=== PATIENT | male | born 1970 | race Caucasian/White ===

== ENCOUNTER 2016-10-06 02:38 | Emergency (ER) | payer MEDICAID, OTHER ==
[2016-10-06] MEDS ORDERED: ONDANSETRON 4 MG VIAL ONE (03:21)
[2016-10-06] MEDS ORDERED: FAMOTIDINE 20 MG INJ ONE (03:22)
[2016-10-06] MEDS ORDERED: LIDOCAINE 2% VISC 15 ML UDC ONE (03:41)
[2016-10-06] MEDS ORDERED: ALU/MAG/SIM 30 ML UDC ONE (03:41)
[2016-10-06] MEDS ORDERED: TRAMADOL 50 MG TAB ONE (04:30)
== END 2016-10-06 05:01 | disposition home or self-care (01) ==
LOC: ER 02:38
DX: R10.13 Epigastric pain (principal); K59.00 Constipation, unspecified
CPT/HCPCS: 36415; 71010; 74000; 80053; 80307; 81003; 82553; 83690; 84484; 85025; 86677; 93005; 96374; 96375